=== PATIENT | male | born 1990 | race Caucasian/White ===

== ENCOUNTER 2016-08-19 12:46 | Emergency (ER) | payer SELFPAY ==
[~2016-08-19] VITALS: Ht 190.5 cm; Wt 104.3 kg
[2016-08-19 12:48] VITALS: BP 135/76
[2016-08-19] MEDS ORDERED: LIDOCAINE HCL/PF 1% 30 ML VIAL TP ONE (13:30)
== END 2016-08-19 14:59 | disposition home or self-care (01) ==
LOC: ER 12:48
DX: L02.91 Cutaneous abscess, unspecified (principal)
CPT/HCPCS: 10060; 99283; A4606; J3490; Z7610